=== PATIENT | female | born 1975 | race Caucasian/White ===

== ENCOUNTER → 2016-12-01 | Outpatient (CLI) | payer BC ==
[~2016-12-01] MED LIST: OPTIRAY 320 IV PRN; PRENTAB26 PO
--- NOTE | 2016-12-01 15:02 | DIAGNOSTIC IMAGING REPORT ---
CT pelvis PELVIS W/IV AND ORAL CONT (CT) CLINICAL HISTORY: Sacral pain pain TECHNIQUE: Transaxial acquisition with multi axial reformatted images COMPARISON STUDY: None FINDINGS: Unremarkable bowel pattern. Uterus is left lateral of midline and contains an intrauterine device. This appears to be within the central canal. No evidence for ovarian enlargement. Osseous structures appear unremarkable. The axial region specifically shows no acute abnormality. There is no abnormality in the posterior subcutaneous fat. Perirectal fascial planes are unremarkable. Bladder is midline. IMPRESSION: Negative study Electronically signed by: Eder Gifford M.D. 12/01/2016 3:00 PM
== END | disposition home or self-care (01) ==
LOC: C.CTS 13:57
PROVIDERS: ATTEND Family Medicine
DX: M53.3 Sacrococcygeal disorders, not elsewhere classified (principal); Z87.2 Personal history of diseases of the skin and subcutaneous tissue

== ENCOUNTER → 2017-03-05 | Outpatient (CLI) | payer BC ==
[~2017-03-05] MED LIST changes: +GADAVIST IV PRN; -OPTIRAY 320 IV PRN
--- NOTE | 2017-03-05 19:43 | DIAGNOSTIC IMAGING REPORT ---
PELVIS MRI WITH AND WITHOUT INTRAVENOUS CONTRAST HISTORY: SACRAL PAIN TECHNIQUE: Multiplanar multisequence MRI of the pelvis was performed both before and after the intravenous administration of contrast. COMPARISON STUDY: Pelvis CT 12/01/2016 FINDINGS: Trace pelvic free fluid is likely physiologic. No fracture or dislocation within the pelvis or hips. Presacral soft tissues are intact. No masses identified within the pelvis. The intrauterine device appears to be in good position. The bladder is unremarkable. No fractures identified within the sacrum or coccyx. No significant central canal narrowing within the lower lumbar spine. There are 2 tiny Tarlov cyst within the sacral canal at the S2 level. The largest on the left measures 6 mm. These are of doubtful clinical significance. Within the right side of the sacrum at approximately the S4 level there is a 1 cm focus of increased T2 signal which demonstrates enhancement. Surrounding soft tissues are unremarkable. IMPRESSION: There is a nonspecific 1 cm focus of increased T2 signal within the right side of the sacrum at approximately the S4 level which demonstrates enhancement. This is indeterminate but could represent a focal area of marrow edema if the patient has had recent trauma. This is less likely to represent a lesion. There is no corresponding abnormality on the recent CT examination. No fractures identified. Recommend correlation for point tenderness at this location. Follow-up pelvis MRI in 1 month could be performed to evaluate for stability/resolution. Electronically signed by: Mario Lozano M.D. 03/07/2017 3:04 PM Dictated Date/Time: 03/05/2017 7:34 PM
== END | disposition home or self-care (01) ==
LOC: C.MRI 17:02
PROVIDERS: ATTEND Colon & Rectal Surgery
DX: M53.3 Sacrococcygeal disorders, not elsewhere classified (principal)

== ENCOUNTER → 2017-09-01 | Outpatient (CLI) | payer BC ==
[~2017-09-01] MED LIST changes: -GADAVIST IV PRN
== END ==
LOC: C.PAPS 14:01
PROVIDERS: ATTEND Obstetrics & Gynecology
DX: Z01.419 Encounter for gynecological examination (general) (routine) without abnormal findings (principal)

== ENCOUNTER → 2017-09-01 | Outpatient (CLI) | payer BC | LOC: C.LABSPEC 13:04 | PROVIDERS: ATTEND Obstetrics & Gynecology | DX: N76.0 Acute vaginitis (principal) ==

== ENCOUNTER → 2017-09-16 | Outpatient (CLI) | payer BC ==
--- NOTE | 2017-09-16 14:35 | MAMMOGRAPHY REPORT ---
BILATERAL DIGITAL SCREENING MAMMOGRAM WITH CAD: 09/16/2017 CLINICAL HISTORY: Patient presents for routine screening. S/P bilateral augmentation. TECHNIQUE: Current study was also evaluated with a Computer Aided Detection (CAD) system. Bilateral CC and MLO views including implant displaced views were obtained. COMPARISON: Comparison is made to exams dated: 09/15/2016 mammogram and 12/19/2014 mammogram - [facility]. BREAST COMPOSITION: There are scattered areas of fibroglandular density in both breasts. FINDINGS: No suspicious masses, calcifications, or areas of architectural distortion are noted in ei ther breast. There has been no significant interval change compared to prior exams. Bilateral subpec rodney saline implants are stable in appearance. IMPRESSION: ACR BI-RADS CATEGORY 2: BENIGN There is no mammographic evidence of malignancy. A 1 year screening mammogram is recommended. The pa tient will receive written notification of the results. Approximately 10% of breast cancers are not detected with mammography. A negative mammographic report should not delay biopsy if a clinically suggestive mass is present. Zora Gurrola M.D. ah/:09/16/2017 13:52:16 Environmental Sciences Professor: Shonna Ag, [facility] letter sent: Normal 1/2 BI-RADS Code: ACR BI-RADS Category 2: Benign
== END | disposition home or self-care (01) ==
LOC: C.MAMM 13:16
PROVIDERS: ATTEND Obstetrics & Gynecology
DX: Z12.31 Encounter for screening mammogram for malignant neoplasm of breast (principal); Z98.82 Breast implant status

== ENCOUNTER → 2017-10-12 | Outpatient (CLI) | payer BC ==
[2017-10-15 16:09] LABS: CHLAMYDIA TRACH RNA*** NOT DETECTED (NOT DETECTED); GC (NEIS GONORRHOEAE)RNA** NOT DETECTED (NOT DETECTED); TRICHOMONAS VAGINALIS RNA** NOT DETECTED (NOT DETECTED)
== END | disposition home or self-care (01) ==
LOC: C.LABSPEC 13:19
PROVIDERS: ATTEND Physician Assistant
DX: N89.8 Other specified noninflammatory disorders of vagina (principal)

== ENCOUNTER → 2017-11-25 | Outpatient (CLI) | payer BC | END | disposition home or self-care (01) | LOC: C.LABSPEC 17:25 | PROVIDERS: ATTEND Physician Assistant | DX: N89.8 Other specified noninflammatory disorders of vagina (principal) ==